=== PATIENT | male | born 1980 | race African-American/Black ===

== ENCOUNTER 2018-01-22 00:27 | Emergency (ER) | payer OTHER | END 2018-01-22 02:43 | disposition left against medical advice (07) | LOC: ER 02:34 | DX: Z53.21 Procedure and treatment not carried out due to patient leaving prior to being seen by health care provider (principal) ==

== ENCOUNTER 2018-01-25 09:33 | Emergency (ER) | payer OTHER ==
[~2018-01-25] VITALS: Ht 180.3 cm; Wt 75.0 kg
[2018-01-25] MEDS ORDERED: KETOROLAC 30MG/ML VIAL IM ONE (12:00)
[2018-01-25] MEDS ORDERED: METHOCARBAMOL 500MG TABLET PO ONE (13:15)
[2018-01-25 15:01] VITALS: BP 104/68
== END 2018-01-25 15:06 | disposition home or self-care (01) ==
LOC: ER 10:04
DX: M54.5 Low back pain (principal); F17.200 Nicotine dependence, unspecified, uncomplicated; F12.10 Cannabis abuse, uncomplicated; Z98.890 Other specified postprocedural states
CPT/HCPCS: 72100; 76881; 96372; 99284; J1885

== ENCOUNTER 2018-02-18 13:28 | Emergency (ER) | payer OTHER ==
[~2018-02-18] VITALS: Ht 177.8 cm; Wt 170.0 kg
[2018-02-18] MEDS ORDERED: MORPHINE SULFATE 4 MG/ML CPJ (NOT FOR IM USE) IV STA (15:17)
[2018-02-18] MEDS ORDERED: SODIUM CHLORIDE 0.9% 1,000 ML IV ONE (15:17)
[2018-02-18] MEDS ORDERED: ONDANSETRON HCL 4MG/2ML VIAL IV STA (15:17)
[2018-02-18] MEDS ORDERED: PROPOFOL 200MG/20ML VIAL IV ONE (15:45)
[2018-02-18 15:46] LABS: HEMATOCRIT. 41.9 % (42.0-52.0); HEMOGLOBIN. 14.1 g/dL (14.0-18.0); MEAN CORPUSCULAR HEMOGLOBIN 27.4 pg (28.0-32.0); MEAN CORPUSCULAR VOLUME 81.6 fL (80.0-94.0); RED BLOOD CELL COUNT 5.14 mill/uL (4.7-6.1); RED CELL DISTRIBUTION WIDTH 14.6 % (11.6-14.6)
[2018-02-18 15:49] LABS: CHLORIDE 106 mEq/L (98-107)
[2018-02-18 16:24] LABS: PLATELET ESTIMATE NORMAL
[2018-02-18 16:42] LABS: PLATELET 178 x1000/uL (130-400)
[2018-02-18] MEDS ORDERED: MORPHINE SULFATE 4 MG/ML CPJ (NOT FOR IM USE) IV ONE (17:15)
[2018-02-18 19:43] VITALS: BP 98/58
== END 2018-02-18 19:49 | disposition home or self-care (01) ==
LOC: ER 14:12
DX: S43.015A Anterior dislocation of left humerus, initial encounter (principal); X50.0XXA Overexertion from strenuous movement or load, initial encounter; Y93.89 Activity, other specified; Y92.89 Other specified places as the place of occurrence of the external cause; F17.210 Nicotine dependence, cigarettes, uncomplicated; F12.90 Cannabis use, unspecified, uncomplicated
CPT/HCPCS: 23650; 36415; 73030; 80053; 85025; 96374; 96375; 96376; 99152; 99285; J2270; J2405; Z7610; J2704; L3670

== ENCOUNTER 2018-07-01 08:32 | Emergency (ER) | payer OTHER ==
[~2018-07-01] VITALS: Ht 177.8 cm; Wt 75.0 kg
[2018-07-01] MEDS ORDERED: MORPHINE SULFATE 4 MG/ML CPJ (NOT FOR IM USE) IV STA (08:59)
[2018-07-01] MEDS ORDERED: ONDANSETRON HCL 4MG/2ML INJ IV STA (08:59)
[2018-07-01] MEDS ORDERED: PROPOFOL 200MG/20ML VIAL IV ONE (09:15)
[2018-07-01 11:28] VITALS: BP 101/65
== END 2018-07-01 11:35 | disposition home or self-care (01) ==
LOC: ER 10:11
DX: S43.015A Anterior dislocation of left humerus, initial encounter (principal); F17.200 Nicotine dependence, unspecified, uncomplicated; X58.XXXA Exposure to other specified factors, initial encounter; Y93.89 Activity, other specified; Y92.89 Other specified places as the place of occurrence of the external cause; Y99.8 Other external cause status
CPT/HCPCS: 23650; 73030; 99152; 99285; J2270; J2405; Z7610; J2704; L3670

== ENCOUNTER 2018-09-24 23:29 | Emergency (ER) | payer OTHER ==
[~2018-09-24] VITALS: Ht 177.8 cm; Wt 77.0 kg
[2018-09-25] MEDS ORDERED: ONDANSETRON HCL 4MG/2ML INJ IV ONE (00:45)
[2018-09-25] MEDS ORDERED: MORPHINE SULFATE 4 MG/ML CPJ (NOT FOR IM USE) IV ONE ×2 (00:45→03:00)
[2018-09-25] MEDS ORDERED: MORPHINE SULFATE 10 MG/ML CPJ IV NR ×2 (02:00→03:15)
[2018-09-25] MEDS ORDERED: PROPOFOL 200MG/20ML VIAL IV ONE (03:15)
[2018-09-25 05:11] VITALS: BP 99/51
== END 2018-09-25 05:15 | disposition home or self-care (01) ==
LOC: ER 23:29
DX: S43.085A Other dislocation of left shoulder joint, initial encounter (principal); F17.200 Nicotine dependence, unspecified, uncomplicated; X58.XXXA Exposure to other specified factors, initial encounter; Y93.89 Activity, other specified; Y92.89 Other specified places as the place of occurrence of the external cause; Y99.8 Other external cause status
CPT/HCPCS: 23650; 73030; 96374; 96375; 96376; 99152; 99285; J2270; J2405; J2704

== ENCOUNTER 2019-04-27 08:13 | Emergency (ER) | payer MEDICAID, OTHER ==
[~2019-04-27] VITALS: Ht 177.8 cm; Wt 78.0 kg
[2019-04-27] MEDS ORDERED: ONDANSETRON HCL 4MG/2ML INJ IV STA (08:36)
[2019-04-27] MEDS ORDERED: MORPHINE SULFATE 4 MG/ML CPJ (NOT FOR IM USE) IV STA (08:36)
[2019-04-27] MEDS ORDERED: SODIUM CHLORIDE 0.9% 1,000 ML IV ONE (08:36)
[2019-04-27] MEDS ORDERED: ETOMIDATE 2MG/ML 10ML VIAL IV ONE (09:45)
[2019-04-27] MEDS ORDERED: KETOROLAC 30MG/ML VIAL ONE (10:22)
[2019-04-27] MEDS ORDERED: KETOROLAC 30MG/ML VIAL IV ONE (10:30)
[2019-04-27 13:20] VITALS: BP 117/72
== END 2019-04-27 13:31 | disposition home or self-care (01) ==
LOC: ER 08:19
DX: M24.412 Recurrent dislocation, left shoulder (principal)
CPT/HCPCS: 23650; 73030; 96374; 96375; 99152; 99285; J1885; J2270; J2405; J3490; J7030; L3670

== ENCOUNTER 2019-08-20 10:16 | Emergency (ER) | payer MEDICAID ==
[~2019-08-20] VITALS: Ht 177.8 cm; Wt 75.0 kg
[2019-08-20] MEDS ORDERED: KETOROLAC 60MG/2ML VIAL IM STA (11:00)
[2019-08-20] MEDS ORDERED: DEXAMETHASONE 10 MG/ML VIAL IM ONE (11:00)
[2019-08-20 11:14] VITALS: BP 135/75
[2019-08-20 11:29] LABS: CLARITY URINE CLEAR (CLEAR); COLOR URINE YELLOW (YELLOW); KETONES URINE NEGATIVE (NEGATIVE); LEUKOCYTE ESTERASE URINE NEGATIVE (NEGATIVE); NITRITE URINE NEGATIVE (NEGATIVE); OCCULT BLOOD URINE NEGATIVE (NEGATIVE); PROTEIN URINE NEGATIVE (NEGATIVE); SPECIFIC GRAVITY URINE 1.011 (1.005-1.030); UROBILINOGEN URINE 0.2 E.U./dL (0.2-1.0)
== END 2019-08-20 12:33 | disposition home or self-care (01) ==
LOC: ER 10:16
DX: G89.29 Other chronic pain (principal); M54.5 Low back pain; M19.90 Unspecified osteoarthritis, unspecified site
CPT/HCPCS: 81003; 96372; 99283; J1100; J1885

== ENCOUNTER 2020-08-17 23:42 | Emergency (ER) | payer MEDICAID ==
[~2020-08-17] VITALS: Ht 177.8 cm; Wt 76.0 kg
[2020-08-18] MEDS ORDERED: ONDANSETRON HCL 4MG/2ML INJ IV ONE (01:00)
[2020-08-18] MEDS ORDERED: MORPHINE SULFATE 4 MG/ML CPJ (NOT FOR IM USE) IV ONE (01:00)
[2020-08-18] MEDS ORDERED: PROPOFOL 200MG/20ML VIAL IV ONE (01:00)
[2020-08-18 03:52] VITALS: BP 98/64
== END 2020-08-18 04:00 | disposition home or self-care (01) ==
LOC: ER 23:54
DX: S43.005A Unspecified dislocation of left shoulder joint, initial encounter (principal); Z98.890 Other specified postprocedural states; W01.0XXA Fall on same level from slipping, tripping and stumbling without subsequent striking against object, initial encounter; Y93.89 Activity, other specified; Y92.89 Other specified places as the place of occurrence of the external cause; Y99.8 Other external cause status
CPT/HCPCS: 23650; 73030; 96374; 96375; 99152; 99285; J2270; J2405; J2704; Z7610; A4565; L3670

== ENCOUNTER 2021-05-28 08:02 | Emergency (ER) | payer MEDICAID ==
[~2021-05-28] VITALS: Ht 182.9 cm; Wt 89.0 kg
[2021-05-28 09:38] LABS: CHLORIDE 107 mEq/L (98-107)
[2021-05-28 09:59] LABS: BASOPHILS % 1.2 % (0.0-2.0); EOSINOPHILS % 0.8 % (0.0-5.0); HEMATOCRIT. 39.2 % (42.0-52.0); HEMOGLOBIN. 13.1 g/dL (14.0-18.0); MEAN CORPUSCULAR HEMOGLOBIN 27.4 pg (28.0-32.0); MEAN CORPUSCULAR VOLUME 81.7 fL (80.0-94.0); MEAN PLATELET VOLUME 7.9 fl (7.4-10.4); MONOCYTES % 8.7 % (2.0-8.0); NEUTROPHILS % 65.3 % (40.0-76.0); PLATELET 157 x1000/uL (130-400); RED CELL DISTRIBUTION WIDTH 14.8 % (11.6-14.6)
[2021-05-28] MEDS ORDERED: IOHEXOL-350 100 ML BOTTLE ONE (13:04)
[2021-05-28 14:08] VITALS: BP 122/79
== END 2021-05-28 14:09 | disposition home or self-care (01) ==
LOC: ER 08:02
DX: R06.00 Dyspnea, unspecified (principal); F12.10 Cannabis abuse, uncomplicated
CPT/HCPCS: 36415; 71045; 71275; 80053; 83880; 84484; 85025; 85379; 93005; 99285; Q9967